=== PATIENT | female | born 1970 | race Caucasian/White ===

== ENCOUNTER 2016-12-16 13:40 | Emergency (ER) | payer BC ==
[2016-12-16] MEDS ORDERED: diphenhydrAMINE 50 MG/ML SDV IVPUSH ONE (14:24)
[2016-12-16] MEDS ORDERED: Sodium Chloride 0.9% 1,000 ML IV ONE (14:24)
[2016-12-16] MEDS ORDERED: Haloperidol Lactate 5 MG/ML SDV IM ONE (14:24)
[2016-12-16] MEDS ORDERED: Ondansetron 4 MG/2 ML SDV IVPUSH ONE (14:24)
--- NOTE | 2016-12-16 15:29 | CT ---
Addendum: Impression states areas of encephalomalacia on the right side as noted above. Areas of encephalomalacia are on the left side. Other portions of the dictation remain the same. --- Addendum1 above dictated on [01/01/2017 11:06] by [Stephanie Ruby, Jeb Espinoza] --- --- Addendum1 above signed on [01/01/2017 11:08] by [Stephanie Ruby Hilton J.] --- --- Original report below dictated on [12/16/2016 15:26] by [Stephanie Ruby Hilton J.] --- --- Original report below signed on [12/16/2016 15:26] by [Stephanie Ruby Hilton J.] --- Head CT Technique: Multiple axial sections through the brain were obtained. Intravenous contrast was not utilized. Comparison: No previous intracranial imaging. Findings: Low density area is identified within the left posterior temporal and anterior occipital region compatible with an area of encephalomalacia from old injury. Slight deformity in the adjacent cranium is seen compatible with old skull fracture. No other abnormal parenchymal densities are seen. No evidence of intracranial hemorrhage. No midline shift or mass effect is seen. Bone window settings were reviewed which shows mild mucosal thickening within portions of the sphenoid sinus and ethmoid sinuses. No air-fluid levels are seen. Soft tissue density is noted within the right mastoid sinus most likely chronic. No acute calvarial abnormality is seen. Impression: 1. Mucosal thickening within the ethmoid and maxillary sinuses most likely representing chronic sinusitis. 2. Soft tissue density within the right mastoid sinus most likely chronic. 3. Area of encephalomalacia on the right side as noted above. Adjacent old appearing skull fracture noted. 4. No acute intracranial abnormality is identified. Diagnostic code #3 --- Addendum1 signed ---
--- NOTE | 2016-12-16 15:43 | EDM.PDOC ---
ED HPI HEADACHE COMPLAINT - General Chief Complaint: Headache Stated Complaint: MIGRAINE Time Seen by Provider: 12/16/16 14:10 Source of Information: Reports: Patient, Family (), RN notes reviewed History Limitations: Reports: No limitations - History of Present Illness INITIAL COMMENTS - FREE TEXT/NARRATIVE: The patient states that she woke with a headache this morning, felt about her right eye. It is sharp and stabbing in character. She has nausea, but has not had emesis. She has photophobia and phonophobia. She denies any visual changes , and denies any neurologic symptoms, such as tingling, numbness, or weakness. The patient states that she has had similar headaches numerous times in the past. She gets a "migraine" about once a month, but as bad as this current headache only about twice a year. She took oral Imitrex at 8:30 and 10:30 this morning. The Imitrex is currently being prescribed by her PCP, Yajaira Bee. She states that she has never seen a Neurologist for her headaches and does not recall if she has ever had an imaging study of her brain. - Related Data Allergies/ADRs: Allergies Allergy/AdvReac Type Severity Reaction Status Date / Time codeine Allergy Nausea Verified 12/16/16 13:51 latex Allergy Hives Verified 12/16/16 13:51 prochlorperazine Allergy Anxiety Verified 12/16/16 13:51 [From Compazine] Home Meds: Home Meds Rizatriptan Benzoate [Rizatriptan] 1 tab PO Q2H PRN #3 tab.rapdis 12/16/16 [Rx] SUMAtriptan [Imitrex] 50 mg PO ASDIRECTED PRN 12/16/16 [History] Past Medical History Neurological History: Reports: Migraines, Other (see below) (TBI at 19 months of age) - Past Surgical History HEENT Surgical History: Reports: Other (see below) (Ear surgery) Neurological Surgical History: Reports: Intracranial Musculoskeletal Surgical History: Reports: Arthroscopic knee (left knee) Social & Family History - Tobacco Use Smoking Status *Q: Never Smoker - Caffeine Use Caffeine Use: Reports: Coffee - Alcohol Use Alcohol Use History: Yes Alcohol Use Frequency: Socially - Recreational Drug Use Recreational Drug Use: No - Living Situation & Occupation Living situation: Reports: , with spouse, with family (2 kids) Occupation: employed ([employer]) ED ROS GENERAL - Review of Systems Review Of Systems: See Below Constitutional: Reports: no symptoms HEENT: Reports: No symptoms Respiratory: Reports: No Symptoms Cardiovascular: Reports: No symptoms Endocrine: Reports: no symptoms GI/Abdominal: Reports: No symptoms : Reports: no symptoms Musculoskeletal: Reports: no symptoms Skin: Reports: no symptoms Neurological: Reports: No Symptoms Psychiatric: Reports: No symptoms Hematologic/Lymphatic: Reports: no symptoms Immunologic: Reports: no symptoms - Physical Exam Exam: See Below Exam Limited By: No limitations General Appearance: alert, WD/WN, mild distress (Appears uncomfortable. Wearing sunglasses.) Eye Exam: bilateral eye: EOMI, normal inspection Ears: normal external exam, normal canal, hearing grossly normal, normal TMs Nose: normal inspection, normal mucosa, no blood Throat/Mouth: Normal inspection, Normal lips, Normal teeth, Normal gums, Normal oropharynx, Normal voice, No airway compromise Head Exam: atraumatic, normocephalic Neck: normal inspection, supple, full range of motion Respiratory/Chest: no respiratory distress, lungs clear, normal breath sounds, no accessory muscle use Cardiovascular: normal peripheral pulses, regular rate, rhythm, no gallop, no JVD, no murmur, no rub GI/Abdominal: normal bowel sounds, soft, non tender, no organomegaly, no distention, no abnormal bruit, no mass Neuro Exam (Abbreviated): alert, oriented, CN II-XII intact, normal cognition, no motor/sensory deficits Extremities: normal inspection, normal range of motion, no pedal edema, normal capillary refill Psychiatric: normal affect Skin Exam: Warm, Dry, Intact, Normal color, No rash Course - Vital Signs Last Recorded V/S: Last Vital Signs Temp 37.0 C 12/16/16 13:48 Pulse 79 12/16/16 16:05 Resp 16 12/16/16 16:05 BP 111/72 12/16/16 16:05 Pulse Ox 100 12/16/16 16:05 - Orders/Labs/Meds Meds: Medications Discontinued Medications Generic Name Dose Route Start Last Admin Trade Name Freq PRN Reason Stop Dose Admin Diphenhydramine HCl 50 mg 12/16/16 14:24 12/16/16 14:45 Benadryl IVPUSH 12/16/16 14:25 50 mg ONETIME ONE Administration Haloperidol Lactate 5 mg 12/16/16 14:24 12/16/16 14:53 Haldol IM 12/16/16 14:25 5 mg ONETIME ONE Administration Sodium Chloride 1,000 mls @ 999 mls/hr 12/16/16 14:24 12/16/16 14:52 Normal Saline IV 12/16/16 15:24 999 mls/hr ONETIME ONE Administration Ondansetron HCl 4 mg 12/16/16 14:24 12/16/16 14:40 Zofran IVPUSH 12/16/16 14:25 4 mg ONETIME ONE Administration - Radiology Interpretation Free Text/Narrative:: CT of the head without contrast is read by Dr. Ruby as: 1. Mucosal thickening within the ethmoid and maxillary sinuses most likely representing chronic sinusitis. 2. Soft tissue density within the right mastoid sinus most likely chronic. 3. Area of encephalomalacia on the right side as noted above. Adjacent old appearing skull fracture noted. 4. No acute intracranial abnormality is identified. - Re-Assessments/Exams Free Text/Narrative Re-Assessment/Exam: 12/16/16 15:43 The patient reports substantial improvement in her headache following Haldol, now down to a "2". This confirms of the patient's headache is migrainous in etiology. For discharge purposes, I will prescribe a few pills of Maxalt, and I am also recommending that the patient followup with either her PCP or a Neurologist to discuss prophylactic migraine treatment. Departure - Departure Time of Disposition: 15:44 Disposition: Home, Self-Care 01 Condition: good Clinical Impression: Migraine headache Prescriptions: Rizatriptan Benzoate [Rizatriptan] 1 tab PO Q2H PRN #3 tab.rapdis PRN Reason: Headache Instructions: Migraine Headache, [id number] Referrals: Yajaira Bee PA [Primary Care Provider] - Forms: ED Department Discharge Additional Instructions: You were seen in the emergency room today for a severe headache above your right eye, similar to prior headaches you have had. Workup in the ER included a CT scan of your head, which demonstrated ethmoid and maxillary sinusitis, along with some old brain damage and a healed skull fracture. You had substantial improvement in your headache following administration of Haldol, a neuroleptic medicine. This confirms that your headache was migraine- type. Get plenty of rest tonight in a dark, quiet place, and stay well hydrated. You have been prescribed 3 tablets of the anti-migraine medicine Maxalt. Dissolve one tablet in your mouth at the earliest sign of a migraine. You may repeat after 2 hours, if necessary, to a maximum of 3 tablets within a 24-hour period. If this medicine works for you, you can talk to your PCP about getting a refill. Consider also talking to your PCP about migraine prophylactic (preventive) medicine. If your PCP is not comfortable with this subject, talk to her about a referral to a Neurologist. If any other problems, please do not hesitate to return to the ER.
[2016-12-16 16:12] VITALS: BP 111/72
== END 2016-12-16 16:05 | disposition home or self-care (01) ==
LOC: JD.ED 13:40
DX: G43.909 Migraine, unspecified, not intractable, without status migrainosus (principal); Z88.5 Allergy status to narcotic agent; Z91.040 Latex allergy status; Z79.899 Other long term (current) drug therapy
CPT/HCPCS: 70450; 96361; 96372; 96374; 96375; 99284; J1200; J1630; J2405; J7040

== ENCOUNTER → 2017-12-07 | Day surgery (SDC) | payer BC ==
[~2017-12-07] MED LIST: Dexamethasone 4 MG/ML 5 ML MDV ONE; HYDROmorphone 0.5 MG/0.5 ML Syringe ONE; Haloperidol Lactate 5 MG/ML SDV IVPUSH ONE; Ketamine 500 mg/10 ML MDV ONE; Ketorolac 30 MG/ML SDV ONE; Lidocaine 1% 4 ML ONE; Lidocaine 1%/Sod Bicarbonate in NS 8.4% 1 ML Syringe IDERM PRN; Midazolam 1 MG/ML 2 ML SDV ONE; Ondansetron 4 MG/2 ML SDV IVPUSH PRN; Ondansetron 4 MG/2 ML SDV ONE; Propofol 200 MG/20 ML SDV ONE; Rocuronium 50 MG/5 ML Vial ONE; Scopolamine 1.5 MG Transdermal Patch TOP SCH; Sodium Chloride 0.9% 10 ML Syringe FLUSH PRN; ceFAZolin 1 GM Vial ONE; fentaNYL 100 MCG/2 ML SDV IVPUSH PRN; fentaNYL 250 MCG/5 ML SDV ONE; traMADol 50 MG Tab PO PRN
--- NOTE | 2017-12-07 08:32 | PCM.PREANE ---
Preanesthetic Assessment - Anesthesia/Transfusion/Family Hx Anesthesia History: Prior Anesthesia Reaction Type of Anesthesia Reaction: Excessive Nausea/Vomiting Family History of Anesthesia Reaction: No Transfusion History: No Prior Transfusion(s) Intubation History: Unknown - Review of Systems Neurological: No Symptoms (history of motion sickness), Headache Other: Reports: Anxiety - Physical Assessment NPO Status Date: 12/06/17 Height: 1.6 m Mental Status: Alert & Oriented x3 - Lab Values: Laboratory Last Values WBC 6.57 K/mm3 (3.98-10.04) 12/06/17 14:31 RBC 4.57 M/mm3 (3.98-5.22) 12/06/17 14:31 Hgb 13.7 gm/L (11.2-15.7) 12/06/17 14:31 Hct 40.4 % (34.1-44.9) 12/06/17 14:31 MCV 88.4 fl (79.4-94.8) 12/06/17 14:31 MCH 30.0 pg (25.6-32.2) 12/06/17 14:31 MCHC 33.9 g/dl (32.2-35.5) 12/06/17 14:31 RDW Std Deviation 41.9 fL (36.4-46.3) 12/06/17 14:31 Plt Count 242 K/mm3 (182-369) 12/06/17 14:31 MPV 11.0 fl (9.4-12.3) 12/06/17 14:31 Neut % (Auto) 56.7 % (34.0-71.1) 12/06/17 14:31 Lymph % (Auto) 28.6 % (19.3-51.7) 12/06/17 14:31 [place] % (Auto) 9.0 % (4.7-12.5) 12/06/17 14:31 Eos % (Auto) 2.0 (0.7-5.8) 12/06/17 14:31 Baso % (Auto) 3.7 % (0.1-1.2) H 12/06/17 14:31 Neut # (Auto) 3.73 K/mm3 (1.56-6.13) 12/06/17 14:31 Lymph # (Auto) 1.88 K/mm3 (1.18-3.74) 12/06/17 14:31 [place] # (Auto) 0.59 K/mm3 (0.24-0.36) H 12/06/17 14:31 Eos # (Auto) 0.13 K/mm3 (0.04-0.36) 12/06/17 14:31 Baso # (Auto) 0.24 K/mm3 (0.01-0.08) H 12/06/17 14:31 Creatinine 0.7 mg/dL (0.55-1.02) 12/06/17 14:31 Est Cr Clr Drug Dosing TNP 12/06/17 14:31 Estimated GFR (MDRD) > 60 mL/min (>60) 12/06/17 14:31 HCG, Qual Negative (NEGATIVE) 12/06/17 14:31 Urine Color Yellow (Yellow) 12/06/17 14:31 Urine Appearance Clear (Clear) 12/06/17 14:31 Urine pH 6.0 (5.0-8.0) 12/06/17 14:31 Ur Specific [place] 1.020 (1.005-1.030) 12/06/17 14:31 Urine Protein Negative (Negative) 12/06/17 14:31 Urine Glucose (UA) Negative (Negative) 12/06/17 14:31 Urine Ketones Negative (Negative) 12/06/17 14:31 Urine Occult Blood Negative (Negative) 12/06/17 14:31 Urine Nitrite Negative (Negative) 12/06/17 14:31 Urine Bilirubin Negative (Negative) 12/06/17 14:31 Urine Urobilinogen 0.2 (0.2-1.0) 12/06/17 14:31 Ur Leukocyte Esterase Negative (Negative) 12/06/17 14:31 Blood Type O POSITIVE 12/06/17 14:31 Gel Antibody Screen Negative 12/06/17 14:31 Above labs reviewed and noted and within acceptable ranges to proceed with scheduled procedure. - Allergies Allergies/Adverse Reactions: Allergies Allergy/AdvReac Type Severity Reaction Status Date / Time codeine Allergy Nausea Verified 12/16/16 13:51 latex Allergy Hives Verified 12/16/16 13:51 prochlorperazine Allergy Anxiety Verified 12/16/16 13:51 [From Compazine] - Anesthesia Plan Pre-Op Medication Ordered: None - Acknowledgements Anesthesia Type Planned: General Anesthesia Pt an Appropriate Candidate for the Planned Anesthesia: Yes Alternatives and Risks of Anesthesia Discussed w Pt/Guardian: Yes Pt/Guardian Understands and Agrees with Anesthesia Plan: Yes PreAnesthesia Questionnaire HEENT History: Reports: Other (See Below) Other HEENT History: right side of head run over by tractor in childhood Neurological History: Reports: Migraines, Other (See Below) - Past Surgical History HEENT Surgical History: Reports: Other (See Below) Musculoskeletal Surgical History: Reports: Arthroscopic Knee - SUBSTANCE USE Smoking Status *Q: Never Smoker Recreational Drug Use History: No - HOME MEDS Home Medications: Home Meds Rizatriptan Benzoate [Rizatriptan] 1 tab PO Q2H PRN #3 tab.rapdis 12/16/16 [Rx] SUMAtriptan [Imitrex] 50 mg PO ASDIRECTED PRN 12/16/16 [History] - CURRENT (IN HOUSE) MEDS Current Meds: Current Medications Lactated Ringer's (Ringers, Lactated) 1,000 mls @ 125 mls/hr IV ASDIRECTED MARIELA Lidocaine/Sodium Bicarbonate (Buffered Lidocaine 1% In Ns 8.4%) 0.25 ml IDERM ONETIME PRN PRN Reason: Prior to IV Start Scopolamine (Transderm-Scop) 1.5 mg TOP ONETIME MARIELA Stop: 12/07/17 23:00 Sodium Chloride (Saline Flush) 10 ml FLUSH ASDIRECTED PRN PRN Reason: Keep Vein Open Discontinued Medications Cefazolin Sodium (Ancef) Confirm Administered Dose 2 gm .ROUTE .STK-MED ONE Stop: 12/07/17 08:06 Dexamethasone (Dexamethasone) Confirm Administered Dose 20 mg .ROUTE .STK-MED ONE Stop: 12/07/17 08:06 Fentanyl (Sublimaze) Confirm Administered Dose 250 mcg .ROUTE .STK-MED ONE Stop: 12/07/17 08:06 Ketamine HCl (Ketalar) Confirm Administered Dose 500 mg .ROUTE .STK-MED ONE Stop: 12/07/17 08:06 Ketorolac Tromethamine (Toradol) Confirm Administered Dose 30 mg .ROUTE .STK- MED ONE Stop: 12/07/17 08:06 Midazolam HCl (Versed 1 Mg/Ml) Confirm Administered Dose 2 mg .ROUTE .STK-MED ONE Stop: 12/07/17 08:06 Ondansetron HCl (Zofran) Confirm Administered Dose 4 mg .ROUTE .STK-MED ONE Stop: 12/07/17 08:06 Propofol (Diprivan 20 Ml) Confirm Administered Dose 200 mg .ROUTE .STK-MED ONE Stop: 12/07/17 08:06 Rocuronium [place] (Zemuron) Confirm Administered Dose 50 mg .ROUTE .STK-MED ONE Stop: 12/07/17 08:06
[2017-12-07] MEDS: Lactated Ringers 1,000 ML IV SCH ×2 (08:50→11:58)
--- NOTE | 2017-12-07 09:19 | PCM.PREANE ---
Preanesthetic Assessment - Anesthesia/Transfusion/Family Hx Anesthesia History: Prior Anesthesia Reaction (nausea) Family History of Anesthesia Reaction: No Transfusion History: No Prior Transfusion(s) Intubation History: Unknown - Review of Systems General: No Symptoms Pulmonary: No Symptoms Cardiovascular: No Symptoms Gastrointestinal: Constipation (chronic) Neurological: No Symptoms Other: Reports: Anxiety - Physical Assessment NPO Status Date: 12/06/17 NPO Status Time: 23:30 Pulse: 76 O2 Sat by Pulse Oximetry: 100 Respiratory Rate: 16 Blood Pressure: 107/72 Temperature: 37.3 C Vital Signs: Last Vital Signs Temp 37.3 C 12/07/17 08:35 Pulse 76 12/07/17 08:35 Resp 16 12/07/17 08:35 BP 107/72 12/07/17 08:35 Pulse Ox 100 12/07/17 08:35 Height: 1.63 m Weight: 68.492 kg ASA Class: 2 Mental Status: Alert & Oriented x3 Airway Class: Mallampati = 1 Dentition: Reports: Normal Dentition, [place](s) Thyro-Mental Finger Breadths: 3 Mouth Opening Finger Breadths: 3 ROM/Head Extension: Full Lungs: Clear to Auscultation, Normal Respiratory Effort Cardiovascular: Regular Rate, Regular Rhythm, No Murmurs - Lab Values: Laboratory Last Values WBC 6.57 K/mm3 (3.98-10.04) 12/06/17 14:31 RBC 4.57 M/mm3 (3.98-5.22) 12/06/17 14:31 Hgb 13.7 gm/L (11.2-15.7) 12/06/17 14:31 Hct 40.4 % (34.1-44.9) 12/06/17 14:31 MCV 88.4 fl (79.4-94.8) 12/06/17 14:31 MCH 30.0 pg (25.6-32.2) 12/06/17 14:31 MCHC 33.9 g/dl (32.2-35.5) 12/06/17 14:31 RDW Std Deviation 41.9 fL (36.4-46.3) 12/06/17 14:31 Plt Count 242 K/mm3 (182-369) 12/06/17 14:31 MPV 11.0 fl (9.4-12.3) 12/06/17 14:31 Neut % (Auto) 56.7 % (34.0-71.1) 12/06/17 14:31 Lymph % (Auto) 28.6 % (19.3-51.7) 12/06/17 14:31 [place] % (Auto) 9.0 % (4.7-12.5) 12/06/17 14:31 Eos % (Auto) 2.0 (0.7-5.8) 12/06/17 14:31 Baso % (Auto) 3.7 % (0.1-1.2) H 12/06/17 14:31 Neut # (Auto) 3.73 K/mm3 (1.56-6.13) 12/06/17 14:31 Lymph # (Auto) 1.88 K/mm3 (1.18-3.74) 12/06/17 14:31 [place] # (Auto) 0.59 K/mm3 (0.24-0.36) H 12/06/17 14: Eos # (Auto) 0.13 K/mm3 (0.04-0.36) 12/06/17 14:31 Baso # (Auto) 0.24 K/mm3 (0.01-0.08) H 12/06/17 14:31 Creatinine 0.7 mg/dL (0.55-1.02) 12/06/17 14:31 Est Cr Clr Drug Dosing TNP 12/06/17 14:31 Estimated GFR (MDRD) > 60 mL/min (>60) 12/06/17 14:31 HCG, Qual Negative (NEGATIVE) 12/06/17 14:31 Urine Color Yellow (Yellow) 12/06/17 14:31 Urine Appearance Clear (Clear) 12/06/17 14:31 Urine pH 6.0 (5.0-8.0) 12/06/17 14:31 Ur Specific [place] 1.020 (1.005-1.030) 12/06/17 14:31 Urine Protein Negative (Negative) 12/06/17 14:31 Urine Glucose (UA) Negative (Negative) 12/06/17 14:31 Urine Ketones Negative (Negative) 12/06/17 14:31 Urine Occult Blood Negative (Negative) 12/06/17 14:31 Urine Nitrite Negative (Negative) 12/06/17 14:31 Urine Bilirubin Negative (Negative) 12/06/17 14:31 Urine Urobilinogen 0.2 (0.2-1.0) 12/06/17 14:31 Ur Leukocyte Esterase Negative (Negative) 12/06/17 14:31 Blood Type O POSITIVE 12/06/17 14:31 Gel Antibody Screen Negative 12/06/17 14:31 - Allergies Allergies/Adverse Reactions: Allergies Allergy/AdvReac Type Severity Reaction Status Date / Time codeine Allergy Nausea Verified 12/16/16 13:51 latex Allergy Hives Verified 12/16/16 13:51 prochlorperazine Allergy Anxiety Verified 12/16/16 13:51 [From Compazine] - Anesthesia Plan Pre-Op Medication Ordered: None - Acknowledgements Anesthesia Type Planned: General Anesthesia Pt an Appropriate Candidate for the Planned Anesthesia: Yes Alternatives and Risks of Anesthesia Discussed w Pt/Guardian: Yes Pt/Guardian Understands and Agrees with Anesthesia Plan: Yes PreAnesthesia Questionnaire HEENT History: Reports: Other (See Below) Other HEENT History: right side of head run over by tractor in childhood Neurological History: Reports: Migraines, Other (See Below) - Past Surgical History HEENT Surgical History: Reports: Other (See Below) Musculoskeletal Surgical History: Reports: Arthroscopic Knee - SUBSTANCE USE Smoking Status *Q: Never Smoker Tobacco Use Within Last Twelve Months: No Second Hand Smoke Exposure: No Days Per Week of Alcohol Use: 1 Number of Drinks Per Day: 0 Total Drinks Per Week: 0 Recreational Drug Use History: No - HOME MEDS Home Medications: Home Meds Rizatriptan Benzoate [Rizatriptan] 1 tab PO Q2H PRN #3 tab.rapdis 12/16/16 [Rx] SUMAtriptan [Imitrex] 50 mg PO ASDIRECTED PRN 12/16/16 [History] Fish Oil/[place]-3 Fatty Acids [Fish Oil 1,000 MG] 1 cap PO DAILY 12/07/17 [ History] Lactobacillus Acidophilus [Acidophilus] 1 cap PO DAILY 12/07/17 [History] Loratadine 10 mg PO DAILY 12/07/17 [History] Multivitamin [Multivitamins] 1 cap PO DAILY 12/07/17 [History] - CURRENT (IN HOUSE) MEDS Current Meds: Current Medications Lactated Ringer's (Ringers, Lactated) 1,000 mls @ 125 mls/hr IV ASDIRECTED MAIRELA Last Admin: 12/07/17 08:50 Dose: 125 mls/hr Lidocaine/Sodium Bicarbonate (Buffered Lidocaine 1% In Ns 8.4%) 0.25 ml IDERM ONETIME PRN PRN Reason: Prior to IV Start Last Admin: 12/07/17 08:49 Dose: 0.25 ml Scopolamine (Transderm-Scop) 1.5 mg TOP ONETIME MARIELA Stop: 12/07/17 23:00 Last Admin: 12/07/17 08:40 Dose: 1.5 mg Sodium Chloride (Saline Flush) 10 ml FLUSH ASDIRECTED PRN PRN Reason: Keep Vein Open Discontinued Medications Cefazolin Sodium (Ancef) Confirm Administered Dose 2 gm .ROUTE .STK-MED ONE Stop: 12/07/17 08:06 Dexamethasone (Dexamethasone) Confirm Administered Dose 20 mg .ROUTE .STK-MED ONE Stop: 12/07/17 08:06 Fentanyl (Sublimaze) Confirm Administered Dose 250 mcg .ROUTE .STK-MED ONE Stop: 12/07/17 08:06 Ketamine HCl (Ketalar) Confirm Administered Dose 500 mg .ROUTE .STK-MED ONE Stop: 12/07/17 08:06 Ketorolac Tromethamine (Toradol) Confirm Administered Dose 30 mg .ROUTE .STK- MED ONE Stop: 12/07/17 08:06 Midazolam HCl (Versed 1 Mg/Ml) Confirm Administered Dose 2 mg .ROUTE .STK-MED ONE Stop: 12/07/17 08:06 Ondansetron HCl (Zofran) Confirm Administered Dose 4 mg .ROUTE .STK-MED ONE Stop: 12/07/17 08:06 Propofol (Diprivan 20 Ml) Confirm Administered Dose 200 mg .ROUTE .STK-MED ONE Stop: 12/07/17 08:06 Rocuronium [place] (Zemuron) Confirm Administered Dose 50 mg .ROUTE .STK-MED ONE Stop: 12/07/17 08:06
[2017-12-07] MEDS: Lidocaine 1% with EPINEPHrine 1:100,000 20 ML MDV ONE ×2 (09:45→10:43)
[2017-12-07] MEDS: Sodium Chloride 0.9% 50 ML SDV ONE ×2 (10:43→10:56)
--- NOTE | 2017-12-07 11:46 | PCM.POSTAN ---
POST ANESTHESIA ASSESSMENT - MENTAL STATUS Mental Status: Alert, Oriented - VITAL SIGNS Pulse Rate: 107 SaO2: 96 Resp Rate: 7 Blood Pressure: 116/63 Temperature: 37.1 C - RESPIRATORY Respiratory Status: Respiratory Rate WNL, Airway Patent, O2 Saturation Stable, Supplemental Oxygen - CARDIOVASCULAR CV Status: Pulse Rate WNL, Blood Pressure Stable - GASTROINTESTINAL GI Status: No Symptoms - PAIN Pain Score: 0 - POST OP HYDRATION Hydration Status: Adequate & Stable - OBSERVATIONS Free Text/Narrative:: no anesthesia complications noted
--- NOTE | 2017-12-07 11:49 | PCM.OPNOTE ---
- General Post-Op/Procedure Note Date of Surgery/Procedure: 12/07/17 Operative Procedure(s): Total vaginal hysterectomy with bilateral salpingectomy Findings: Uterus upper limits normal size. Ovaries were normal and functional in nature. Fallopian tubes were benign in appearance. Mild cystocele and rectocele noted. Pre Op Diagnosis: Menorrhagia, irregular uterine bleeding Post-Op Diagnosis: Same Anesthesia Technique: General ET Tube Other Anesthesia Type: Lidocaine quarter percent with [id number] mL Primary Surgeon: Kristian Acosta Secondary Surgeon: Yariel Benton Anesthesia Provider: Skyler Gomez [employer] Inspector: Pj Vazquez Pathology: Uterus and bilateral fallopian tubes in one container Fluid Replacement, Intraop: 1,700 EBL in mLs: 50 Complications: None Condition: Good Free Text/Narrative:: Surgery duration: 29 minutes Procedure: The patient was placed in supine position on the operating table. General endotracheal anesthesia was accomplished. After positioning, and adequate prep and drape, the procedure was then performed. Sterile speculum was placed in the vagina and cervix was visualized. Cervix was injected with lidocaine quarter percent with [id number] mL used. A full circumference incision was made in the cervical epithelium. The bladder was pushed well back off cervix. Posterior cul-de-sac was then entered sharply without problems. Left uterosacral was crossclamped with a Enseal vessel closure system. The left uterosacral and then the right uterosacral ligament pedicles were developed using the Enseal system. The anterior cul-de-sac was then entered without problems and the uterine vasculature, cardinal ligament and broad ligament then developed using Enseal vessel closure system. The uterus was inverted at this time and upper broad ligament fallopian tube pedicles were crossclamped with Leland clamps. Specimen was totally removed. Both these pedicles were then secured with a Leland stitch of #1 Vicryl. Left and right fallopian tube was normal in appearance.. Using Enseal vessel closure system each of the tubes was then removed and sent with the specimen. The patient was found to be hemostatically intact at this time. Vaginal cuff was sutured for hemostatic reasons with a running locked suture of 0 Monocryl from the 2 o'clock position to the 10 o'clock position posteriorly. Modified Moschcowitz procedure was performed with a n 0 Monocryl suture placed through the posterior aspect of the vaginal cuff over to the patient's right uterosacral ligament then the Small bites of posterior cul-de-sac peritoneum to the left uterosacral ligament and incorporating that and vaginal angle into this the suture and then back to midline and out the posterior vaginal cuff area. The suture was tied as the last action of this surgery. Vaginal cuff was then closed from right to left side with a running locked suture of 0 Monocryl. Patient was returned to supine position and awakened from general endotracheal anesthesia. She tolerated the procedure was then left the operating room in satisfactory condition.
--- NOTE | 2017-12-07 12:23 | PCM48HPAN ---
Post Anesthesia Note - EVALUATION WITHIN 48HRS OF ANESTHETIC Vital Signs in Normal Range: Yes Patient Participated in Evaluation: Yes Respiratory Function Stable: Yes Airway Patent: Yes Cardiovascular Function Stable: Yes Hydration Status Stable: Yes Pain Control Satisfactory: Yes Nausea and Vomiting Control Satisfactory: Yes Mental Status Recovered: Yes Pulse Rate: 107 SaO2: 99 Resp Rate: 8 Temperature: 37.1 C Blood Pressure: 116/63 - COMMENTS/OBSERVATIONS Free Text/Narrative:: no anesthesia complications noted
[2017-12-07 14:43] VITALS: BP 122/81
== END | disposition home or self-care (01) ==
LOC: JD.SDS 08:00
PROVIDERS: ATTEND Obstetrics & Gynecology
DX: D25.9 Leiomyoma of uterus, unspecified (principal); N80.0 Endometriosis of uterus; N70.01 Acute salpingitis; N70.11 Chronic salpingitis; F41.9 Anxiety disorder, unspecified; N63.0 Unspecified lump in unspecified breast; K59.09 Other constipation; H91.92 Unspecified hearing loss, left ear; G43.909 Migraine, unspecified, not intractable, without status migrainosus; J30.2 Other seasonal allergic rhinitis; Z88.8 Allergy status to other drugs, medicaments and biological substances; Z88.5 Allergy status to narcotic agent; Z91.040 Latex allergy status; Z79.899 Other long term (current) drug therapy
CPT/HCPCS: 36415; 58262; 81003; 82565; 84703; 85025; 86850; 86900; 86901; A9270; J0690; J1100; J1170; J1630; J1885; J2250; J2405; J3010; J7120; 00944; J2001; J2704

== ENCOUNTER 2020-11-04 07:00 | Day surgery (SDC) | payer BC ==
[~2020-11-04 07:00] MED LIST changes: -Dexamethasone 4 MG/ML 5 ML MDV ONE; -HYDROmorphone 0.5 MG/0.5 ML Syringe ONE; -Haloperidol Lactate 5 MG/ML SDV IVPUSH ONE; -Ketamine 500 mg/10 ML MDV ONE; -Ketorolac 30 MG/ML SDV ONE; -Midazolam 1 MG/ML 2 ML SDV ONE; +Morphine 8 MG, EPINEPHrine 0.3 MG, Cefuroxime 750 MG, Ketorolac 30 MG, Sodium Chloride ... PRN; -Ondansetron 4 MG/2 ML SDV IVPUSH PRN; -Ondansetron 4 MG/2 ML SDV ONE; -Rocuronium 50 MG/5 ML Vial ONE; -Scopolamine 1.5 MG Transdermal Patch TOP SCH; -fentaNYL 100 MCG/2 ML SDV IVPUSH PRN; +fentaNYL 100 MCG/2 ML SDV ONE; -fentaNYL 250 MCG/5 ML SDV ONE; -traMADol 50 MG Tab PO PRN
[2020-11-04] MEDS ORDERED: Vancomycin 1 GM SDV ONE (07:15)
[2020-11-04] MEDS: Lactated Ringers 1,000 ML IV SCH ×2 (07:17→10:31)
--- NOTE | 2020-11-04 07:19 | PCM.PREANE ---
Preanesthetic Assessment - Procedure Proposed Procedure: Left Knee partial medial replacement - Anesthesia/Transfusion/Family Hx Anesthesia History: Prior Anesthesia Reaction (nausea) Transfusion History: No Prior Transfusion(s) Intubation History: Unknown - Review of Systems General: No Symptoms Pulmonary: No Symptoms Cardiovascular: No Symptoms Gastrointestinal: No Symptoms Neurological: No Symptoms Other: Reports: None - Physical Assessment NPO Status Date: 11/03/20 NPO Status Time: 22:00 Vital Signs: 110/78 77 99% ASA Class: 1 Mental Status: Alert & Oriented x3 Dentition: Reports: Normal Dentition Thyro-Mental Finger Breadths: 3 Mouth Opening Finger Breadths: 3 ROM/Head Extension: Full Lungs: Clear to Auscultation, Normal Respiratory Effort Cardiovascular: Regular Rate, Regular Rhythm - Allergies Allergies/Adverse Reactions: Allergies Allergy/AdvReac Type Severity Reaction Status Date / Time latex Allergy Hives Verified 11/03/20 14:17 codeine AdvReac Nausea Verified 11/03/20 14:17 prochlorperazine AdvReac Anxiety Verified 11/03/20 14:17 [From Compazine] - Acknowledgements Anesthesia Type Planned: Spinal Pt an Appropriate Candidate for the Planned Anesthesia: Yes Alternatives and Risks of Anesthesia Discussed w Pt/Guardian: Yes Pt/Guardian Understands and Agrees with Anesthesia Plan: Yes PreAnesthesia Questionnaire HEENT History: Reports: Hard of Hearing, Impaired Vision, Other (See Below) Other HEENT History: right side of head run over by tractor in childhood Cardiovascular History: Reports: None Respiratory History: Reports: Other (See Below) Other Respiratory History: pneumonia Gastrointestinal History: Reports: Chronic Constipation Genitourinary History: Reports: None 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: Other (See Below) Other OB/BYN History: breast nodule, hot flashes, hormone replacement therapy, irregular menses, menorrhagia Neurological History: Reports: Migraines, Other (See Below) Other Neuro History: motion sickness, vasomotor instability Psychiatric History: Reports: Anxiety Endocrine/Metabolic History: Reports: None Hematologic History: Reports: None Immunologic History: Reports: None Oncologic (Cancer) History: Reports: None Dermatologic History: Reports: None - Infectious Disease History Infectious Disease History: Reports: None - Past Surgical History Head Surgeries/Procedures: Reports: None HEENT Surgical History: Reports: Other (See Below) Other HEENT Surgeries/Procedures: right mastoid cavity debridement Cardiovascular Surgical History: Reports: None Respiratory Surgical History: Reports: None GI Surgical History: Reports: Colonoscopy, EGD Female Surgical History: Reports: Hysterectomy Male Surgical History: Reports: None Endocrine Surgical History: Reports: None Neurological Surgical History: Reports: Intracranial Musculoskeletal Surgical History: Reports: Arthroscopic Knee Oncologic Surgical History: Reports: None Dermatological Surgical History: Reports: None - SUBSTANCE USE Tobacco Use Status *Q: Never Tobacco User Recreational Drug Use History: No - HOME MEDS Home Medications: Home Meds Fish Oil/[place]-3 Fatty Acids [Fish Oil 1,000 MG] 1 cap PO DAILY 12/07/17 [History] Lactobacillus Acidophilus [Acidophilus] 1 cap PO DAILY 12/07/17 [History] Loratadine 10 mg PO DAILY 12/07/17 [History] Multivitamin [Multivitamins] 1 cap PO DAILY 12/07/17 [History] Aspirin [Aspirin EC] 325 mg PO BID #84 tab 11/03/20 [Rx] Cholecalciferol (Vitamin D3) [Vitamin D3] 5,000 unit PO DAILY 11/03/20 [History] Cyclobenzaprine [Flexeril] 10 mg PO BID PRN #20 tab 11/03/20 [Rx] Lactulose 15 ml PO BID PRN 11/03/20 [History] Mv-Mn/C/Glutamin/Lysin/Asbj635 [Airborne Gummies] 1 tab PO DAILY 11/03/20 [History] Psyllium [Metamucil] 0.52 gm PO BID PRN 11/03/20 [History] SUMAtriptan succinate [Imitrex] 100 mg PO ASDIRECTED PRN 11/03/20 [History] Scopolamine [Transderm-Scop] 1 patch TOP Q3D PRN 11/03/20 [History] oxyCODONE 5 - 10 mg PO Q4H PRN #40 tab 11/03/20 [Rx] polyethylene glycoL 3350 [MiraLAX] 1 dose PO BID PRN 11/03/20 [History] - CURRENT (IN HOUSE) MEDS Current Meds: Current Medications Morphine Sulfate 8 mg/Epinephrine HCl 0.3 mg/Cefuroxime Sodium 750 mg/Ketorolac Tromethamine 30 mg/Sodium Chloride 7.9 ml 0 mg .XX ASDIRECTED PRN PRN Reason: Pain Stop: 11/04/20 18:00 Lactated Ringer's (Ringers, Lactated) 1,000 mls @ 125 mls/hr IV ASDIRECTED MARIELA Stop: 11/04/20 23:00 Lidocaine/Sodium Bicarbonate (Buffered Lidocaine 1% In Ns 8.4%) 0.25 ml IDERM ONETIME PRN PRN Reason: Prior to IV Start Stop: 11/04/20 23:00 Sodium Chloride (Saline Flush) 10 ml FLUSH ASDIRECTED PRN PRN Reason: Keep Vein Open Stop: 11/04/20 23:00 Discontinued Medications Cefazolin Sodium (Ancef) Confirm Administered Dose 2 gm .ROUTE .STK-MED ONE Stop: 11/04/20 06:59 Fentanyl (Sublimaze) Confirm Administered Dose 100 mcg .ROUTE .STK-MED ONE Stop: 11/04/20 06:59 Lidocaine HCl (Xylocaine-Mpf 1%) Confirm Administered Dose 4 mls @ as directed .ROUTE .STK-MED ONE Stop: 11/04/20 06:59 Propofol (Diprivan 20 Ml) Confirm Administered Dose 400 mg .ROUTE .STK-MED ONE Stop: 11/04/20 06:58
[2020-11-04] MEDS ORDERED: oxyCODONE ER 10 MG TAB.ER PO SCH (07:39)
[2020-11-04] MEDS ORDERED: Acetaminophen 325 MG Tab PO SCH (07:39)
[2020-11-04] MEDS ORDERED: Pregabalin 25 MG Cap PO SCH (07:40)
[2020-11-04] MEDS ORDERED: Dexmedetomidine 200 MCG/2 ML SDV ONE (07:41)
[2020-11-04] MEDS ORDERED: Ropivacaine 0.5% 5 MG/ML 30 ML SDV ONE (07:41)
[2020-11-04] MEDS ORDERED: Dexamethasone 4 MG/ML 5 ML MDV ONE (07:48)
[2020-11-04] MEDS ORDERED: Midazolam 1 MG/ML 2 ML SDV ONE (08:06)
--- NOTE | 2020-11-04 08:51 | PCM.PRNOTE ---
- Free Text/Narrative Note: Postoperative regional pain control requested by surgeon. Pre-op Dx: Lt knee osteoarthritis. Post-op Rx: Total Lt knee arthroplasty. Procedure: Lt Adductor canal block with U/S guidance Requesting physician: Dr. Wolfgang Clarke Risks and benefits discussed with the patient preoperatively including infection, bleeding, incomplete or failed block, possible nerve damage, local anesthetic toxicity. Permit signed. Patient after spinal anesthesia post surgery in PACU, stable , alert and awake. Time out performed. Left mid-thigh was prepped with Chloraprep x 1 and allowed to dry. Under aseptic technique, the left femoral artery and sartorius muscle were identified under ultrasound prior to needle insertion. 4" Stimuplex needle #22 G was inserted under US guidance. Under direct visualization of needle tip the injection of 0.5% Ropivacaine with 1:200k epinephrine, with 8 mg of Dexamethasone and 40 mcg of Dexmedetomidine, total of 25 mls in divided doses, maintaining negative aspiration was completed without problems. No local anesthetic toxicity was noted. Patient is awake, stable and tolerated the procedure well. Time: 10:05 - 10:08 Please see attached U/S pictures.
[2020-11-04] MEDS ORDERED: fentaNYL 100 MCG/2 ML SDV IVPUSH PRN (09:03)
[2020-11-04] MEDS ORDERED: HYDROmorphone 0.5 MG/0.5 ML Syringe IVPUSH PRN (09:03)
[2020-11-04] MEDS ORDERED: oxyCODONE 5 MG Tab PO PRN (10:24)
--- NOTE | 2020-11-04 10:48 | PCM.POSTAN ---
POST ANESTHESIA ASSESSMENT - MENTAL STATUS Mental Status: Alert, Oriented - VITAL SIGNS Vital Signs: Postoperative VSs 122/65 105 22 RR 99% 97.2F - RESPIRATORY Respiratory Status: Respiratory Rate WNL, Airway Patent, O2 Saturation Stable - CARDIOVASCULAR CV Status: Pulse Rate WNL, Blood Pressure Stable - GASTROINTESTINAL GI Status: No Symptoms - PAIN Pain Score: 3 (ACB block is being done) - POST OP HYDRATION Hydration Status: Adequate & Stable
--- NOTE | 2020-11-04 11:03 | CR ---
Left knee: AP and lateral views left knee were obtained. Comparison: Prior CT left knee study of 10/14/20. Findings: Left knee prosthesis is noted as well as a patellar prosthesis. Components are aligned. Soft tissue air is noted from the surgical procedure. No acute underlying bony abnormality is otherwise seen. Impression: 1. Satisfactory postop radiographic appearance of recently placed left knee prosthesis. Diagnostic code #2
[2020-11-04] MEDS ORDERED: Ondansetron 4 MG/2 ML SDV IVPUSH ONE (11:21)
--- NOTE | 2020-11-04 13:17 | PCM48HPAN ---
Post Anesthesia Note - EVALUATION WITHIN 48HRS OF ANESTHETIC Vital Signs in Normal Range: Yes Patient Participated in Evaluation: Yes Respiratory Function Stable: Yes Airway Patent: Yes Cardiovascular Function Stable: Yes Hydration Status Stable: Yes Pain Control Satisfactory: Yes Nausea and Vomiting Control Satisfactory: Yes Mental Status Recovered: Yes Vital Signs: Last Vital Signs Temp 97.9 F 11/04/20 12:00 Pulse 73 11/04/20 12:35 Resp 16 11/04/20 12:35 BP 111/71 11/04/20 12:35 Pulse Ox 99 11/04/20 12:35 - COMMENTS/OBSERVATIONS Free Text/Narrative:: Preparing for discharge home
[2020-11-04 14:55] VITALS: BP 118/73; PULSE 86
--- NOTE | 2020-11-15 17:06 | PCM.OPNOTE ---
- General Post-Op/Procedure Note Date of Surgery/Procedure: 11/04/20 Operative Procedure(s): left total knee arthroplasty with lan robotics Pre Op Diagnosis: left knee osteoarthrosis Post-Op Diagnosis: Same Anesthesia Technique: Local, MAC, Spinal Primary Surgeon: Wolfgang Foley Anesthesia Provider: Ketan Hurtado Car Worker Helper: Ladi Hurst Car Worker Helper: Roro Paige EBL in mLs: 100 Complications: None Condition: Good Free Text/Narrative:: 3 femur 4itibia 9mm 32x10
--- NOTE | 2020-11-15 18:33 | OR ---
DATE OF OPERATION: 11/04/2020 SURGEON: Wolfgang Foley MD OPERATION PERFORMED: Left total knee arthroplasty with Davis robotic. PREOPERATIVE DIAGNOSIS: Left knee osteoarthrosis. POSTOPERATIVE DIAGNOSIS: Left knee osteoarthrosis. ANESTHESIA: Local MAC with spinal. ANESTHESIA PROVIDER: Maria D Esposito. ASSISTANTS: Ladi Hurst PA-C and Roro Paige LPN ESTIMATED FLUID LOSS: 100 mL. COMPLICATIONS: None. CONDITION: Stable. IMPLANTS: 1. [place] size 3 press-fit CR femur. 2. [place] size 4 press-fit tibial baseplate. 3. [place] size 4, 9 mm CS polyethylene insert. 4. Indira size 32 x 10 mm press-fit asymmetric patella. DESCRIPTION OF PROCEDURE: The patient was identified in the preoperative holding area. Proper site was marked and identified by the surgeon. The patient was taken back to the operating theater where after adequate anesthesia, the patient had a nonsterile tourniquet applied to left lower extremity. Left lower extremity was then sterilely prepped and draped in the usual sterile fashion. OR time-out was performed. The patient received 2 g IV Ancef. At this time, standard incision was made anteriorly and a medial parapatellar arthrotomy was created. At this time, we noted the patient had no ACL whatsoever as well as some lateral chondromalacial changes, so a partial total knee arthroplasty of the medial compartment was unable to be done. At this time, the anterior fat pad was resected. Deep fibers of the MCL were raised. Attention was turned to the patella. Patella measured 24 and was resected to a 14 for a 32 x 10 mm press- fit patella. The drill holes were then drilled and found to be adequate. Attention was turned to the femur. Two 4-0 guide pins were placed in the femur in the proper position and the Davis [place] robotic array for the femur was placed. This was then done on the tibia, roughly 3 fingerbreadths below the tibial tubercle. Hip center of rotation was then obtained. Medial and lateral malleoli were marked. 40 points were then obtained from both the femur and tibia at this point for the [place] Davis robotic plan. The plan was then done for gaps of 19 mm in both extension and flexion for the patient, and the anterior posterior and anterior and posterior chamfer cuts were then completed as well as the tibial cut. All cuts were then removed. Medial and lateral meniscus were removed. Any posterior osteophytes were removed at this point. The size 4 tibial trial was then placed as well as the size 3 trial femur. A 9 mm trial poly was placed. The patient's knee was brought to full extension and was noted to have good gap balancing with no varus-valgus instability. Full extension was noted on the [employer] robotic assist as well as full flexion with no signs of liftoff. At this time, drill holes were drilled and the tibia was stamped and drilled in proper rotation. All trial implants were removed. The size 4 press-fit tibia was impacted into place. Size 3 press-fit femur was impacted into place. A 9 mm polyethylene was impacted into place. The patient's knee was brought into full extension and the 32 x 10 mm press-fit patella was press-fit into place. Tourniquet was deflated. All bleeders were cauterized. 400 mL of Irrisept irrigation were irrigated through the knee along with 1 L pulse lavage irrigation with Ancef. Periarticular injection was completed as well as Marcaine injection subcutaneously. Topical tranexamic acid and vancomycin powder were placed intra-articularly. #2 barbed suture was used for closure of the medial parapatellar arthrotomy. 2-0 Vicryl as well as Stratafix were used for subcutaneous closure and Prineo was used for skin closure. The patient had a sterile soft dressing applied and sent to PACU in stable condition. ESTIMATED BLOOD LOSS: MMODAL /[id number]
== END 2020-11-04 14:41 | disposition home or self-care (01) ==
LOC: JD.SDS 07:00
PROVIDERS: ATTEND Orthopaedic Surgery
DX: M17.12 Unilateral primary osteoarthritis, left knee (principal); M94.262 Chondromalacia, left knee; K59.09 Other constipation; Z88.5 Allergy status to narcotic agent; Z88.8 Allergy status to other drugs, medicaments and biological substances; Z91.040 Latex allergy status; Z79.899 Other long term (current) drug therapy; Z98.890 Other specified postprocedural states
CPT/HCPCS: 27447; 73560; 97110; 97116; 97161; 97165; A9270; C1713; C1776; J0171; J0690; J0697; J1100; J1885; J2250; J2270; J2370; J2405; J2704; J2795; J3010; J3370; J7120; 01402; 64450